=== PATIENT | male | born 1945 | race Caucasian/White ===

== ENCOUNTER 2018-05-30 08:17 | Day surgery (SDC) | payer BC, MEDICARE ==
[~2018-05-30 08:17] MED LIST: Bupivacaine 0.5% 50 ML MDV ONE; Lidocaine 1% with EPINEPHrine 1:100,000 50 ML MDV ONE
[2018-05-30] MEDS ORDERED: Dextrose 5%-Lactated Ringers 1,000 ML IV SCH (09:00)
[2018-05-30] MEDS ORDERED: ceFAZolin 2 GM in Premix Bag 1 BAG IV ONE (09:45)
[2018-05-30] MEDS ORDERED: fentaNYL 100 MCG/2 ML SDV ONE (10:22)
[2018-05-30] MEDS ORDERED: Propofol 200 MG/20 ML SDV ONE ×2 (10:22→11:07)
[2018-05-30] MEDS ORDERED: Midazolam 1 MG/ML 2 ML SDV ONE (10:22)
--- NOTE | 2018-06-02 10:35 | OR ---
DATE OF PROCEDURE: 05/30/2018 PREOPERATIVE DIAGNOSIS: Reducible left inguinal hernia. POSTOPERATIVE DIAGNOSIS: Reducible direct left inguinal hernia. PROCEDURE: Repair of reducible direct left inguinal hernia with an extra-large PerFix mesh plug and patch. SURGEON: García Marcum MD ANESTHESIA: IV anesthesia with monitored anesthesia care. INDICATION: This 72-year-old white male has a reducible left inguinal hernia. He denies predisposing factors for hernia formation. No signs or symptoms of incarceration or obstruction. I counseled him for repair of this hernia with a mesh plug and patch. He gave his informed consent to proceed. DESCRIPTION OF PROCEDURE: After adequate IV anesthesia was obtained, the patient's lower abdomen, groin, and genitalia were prepped and draped in usual sterile fashion. Time-out was held. Lidocaine 1% with epinephrine in a 50:50 mix with 0.5% Marcaine was infiltrated about the left groin. A left groin incision was made 2 cm superior and medial to the inguinal ligament. This was carried deep using Bovie cautery to the external oblique. The external oblique was opened parallel to the course of its fibers from the internal to external ring. The spermatic cord was mobilized and a [place] drain placed about it. The ilioinguinal nerve was divided and the cremasteric fibers were to reveal no evidence of an indirect hernia. The floor was essentially gone, consistent with a direct inguinal hernia. This was dissected free and reduced back in the abdominal cavity. The hernia was then repaired with an extra-large PerFix mesh plug manufactured by [employer]. The plug was placed down through the defect underneath the fascia and anchored on each side to the fascia with 2-0 Vicryl suture. The onlay patch was obtained, cut to appropriate length, and placed over the inguinal floor and anchored to itself around the spermatic cord with the 2-0 Vicryl stitch. Additional local anesthetic was placed. The external oblique was then closed with a running stitch of 2-0 Vicryl. The incision was irrigated and suctioned dry. Interrupted 3-0 Vicryl stitches were placed to approximate the Sam's fascia, 4-0 Vicryl using a subcuticular stitch was placed to approximate the skin. Dermabond was applied. The patient tolerated the procedure well and was brought to the recovery room in good condition. García Marcum MD /[id number]
== END 2018-05-30 13:25 | disposition home or self-care (01) ==
LOC: JP.SDS 08:17
PROVIDERS: ATTEND Surgery
DX: K40.90 Unilateral inguinal hernia, without obstruction or gangrene, not specified as recurrent (principal)
CPT/HCPCS: 49505; C1781; J0690; J2250; J2704; J3010; J3490; J7042